=== PATIENT | female | born 1930 | race Caucasian/White ===

== ENCOUNTER 2018-01-23 11:14 | Outpatient (CLI) | payer MEDICAID, MEDICARE | END 2018-01-23 20:14 | disposition home or self-care (01) | LOC: SRD 11:14 | PROVIDERS: ATTEND Internal Medicine | DX: M16.0 Bilateral primary osteoarthritis of hip (principal); M47.896 Other spondylosis, lumbar region | CPT/HCPCS: 73502 ==